=== PATIENT | male | born 2000 | race American Indian/Alaskan Native ===

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

== ENCOUNTER 2021-10-17 10:53 | Emergency (ER) | payer MEDICAID ==
--- NOTE | 2021-10-17 12:29 | Emergency Department Report ---
ED General Adult HPI - General Chief complaint: Upper Respiratory Infection Stated complaint: POSS FLU Time Seen by Provider: 10/17/21 11:34 Source: patient Mode of arrival: Ambulatory Limitations: No Limitations - History of Present Illness Initial comments: 21-year-old male patient presents with complaints of cough x5 days. He denies being vaccinated against COVID-19 or having testing performed. He states his girlfriend is sick with similar symptoms. Patient is also a chronic smoker. He denies any fever/chills/sweats, hemoptysis, shortness of breath, nausea/vomiting/diarrhea, or loss of taste or smell. Patient states NyQuil is not helping. - Related Data Previous Rx's Medication Instructions Recorded Last Taken Type Albuterol Sulfate [Proventil Hfa] 6.7 gm IH Q4H PRN #1 hfa.aer.ad 10/17/21 Unknown Rx Azithromycin [Zithromax Z-GRACIELA] 0 mg PO DAILY #6 tab 10/17/21 Unknown Rx Prednisone [predniSONE 10 mg 10 mg PO .TAPER #1 tab.ds.pk 10/17/21 Unknown Rx (6-Day Pack, 21 Tabs)] guaiFENesin [Guaifenesin ER] 1,200 mg PO BID PRN #14 tab.er.12h 10/17/21 Unknown Rx Allergies Allergy/AdvReac Type Severity Reaction Status Date / Time No Known Allergies Allergy Verified 09/03/19 01:31 ED Review of Systems ROS: Stated complaint: POSS FLU Other details as noted in HPI Constitutional: denies: chills, diaphoresis, fever, malaise Respiratory: cough. denies: shortness of breath, wheezing Cardiovascular: denies: chest pain Gastrointestinal: denies: abdominal pain Musculoskeletal: denies: back pain Neurological: denies: numbness ED Past Medical Hx - Social History Smoking Status: Current Every Day Smoker Substance Use Type: None - Medications Home Medications: Home Medications Medication Instructions Recorded Confirmed Last Taken Type Albuterol Sulfate [Proventil Hfa] 6.7 gm IH Q4H PRN #1 hfa.aer.ad 10/17/21 Unknown Rx Azithromycin [Zithromax Z-GRACIELA] 0 mg PO DAILY #6 tab 10/17/21 Unknown Rx Prednisone [predniSONE 10 mg 10 mg PO .TAPER #1 tab.ds.pk 10/17/21 Unknown Rx (6-Day Pack, 21 Tabs)] guaiFENesin [Guaifenesin ER] 1,200 mg PO BID PRN #14 tab.er.12h 10/17/21 Unknown Rx ED Physical Exam - General Limitations: No Limitations General appearance: alert, in no apparent distress - Head Head exam: Present: atraumatic, normocephalic - Eye Eye exam: Present: normal appearance. Absent: scleral icterus - Neck Neck exam: Present: normal inspection - Respiratory Respiratory exam: Present: wheezes (Diffuse), rhonchi (Diffuse). Absent: res piratory distress, rales, stridor - Cardiovascular Cardiovascular Exam: Present: regular rate, normal rhythm - Neurological Exam Neurological exam: Present: alert, oriented X3, normal gait - Psychiatric Psychiatric exam: Present: normal affect, normal mood - Skin Skin exam: Present: warm, dry, intact, normal color. Absent: rash ED Course Vital Signs 10/17/21 11:28 Temperature 98.4 F Pulse Rate 74 Respiratory 15 Rate Blood Pressure 116/72 O2 Sat by Pulse 95 Oximetry ED Medical Decision Making - Radiology Data Radiology results: report reviewed CHEST 2 VIEWS INDICATION / CLINICAL INFORMATION: cough, diffuse rhonci and weezing. COMPARISON: None available. FINDINGS: SUPPORT DEVICES: None. HEART / MEDIASTINUM: No significant abnormality. LUNGS / PLEURA: No significant pulmonary or pleural abnormality. No pneumothorax. ADDITIONAL FINDINGS: No significant additional findings. IMPRESSION: 1. No acute findings. - Medical Decision Making 21-year-old male patient presents with complaints of cough x5 days. He denies being vaccinated against COVID-19 or having testing performed. He states his girlfriend is sick with similar symptoms. Patient is also a chronic smoker. He denies any fever/chills/sweats, hemoptysis, shortness of breath, nausea/vomiting/diarrhea, or loss of taste or smell. Patient states NyQuil is not helping. On exam, patient has diffuse wheezing and rhonchi noted bilaterally. Chest x- ray is normal. Given duration of symptoms, history of smoking, and worsening of symptoms, will treat for acute bacterial bronchitis with a Z-Graciela. Recommend patient follows up with his primary care doctor in 3 to [address] gets outpatient COVID-19 testing within the next 24 to 48 hours and self quarantine's until his results are back. He is otherwise well-appearing, his vitals are within normal limits, he is stable for discharge home. Strict return precautions were discussed in detail with patient who verbalizes understanding. Critical care attestation.: If time is entered above; I have spent that time in minutes in the direct care of this critically ill patient, excluding procedure time. ED Disposition Clinical Impression: Acute bacterial bronchitis Disposition: HOME / SELF CARE / HOMELESS Is pt being admited?: No Condition: Stable Instructions: Acute Bronchitis (ED), Acute Bronchitis, Adult, [id number], Prevent the Spread of COVID-19 if You Are Sick - [facility] Prescriptions: guaiFENesin [Guaifenesin ER] 1,200 mg PO BID PRN #14 tab.er.12h PRN Reason: chest congestion Prednisone [predniSONE 10 mg (6-Day Pack, 21 Tabs)] 10 mg PO .TAPER #1 tab.ds.pk Albuterol Sulfate [Proventil Hfa] 6.7 gm IH Q4H PRN #1 hfa.aer.ad PRN Reason: Wheezing Azithromycin [Zithromax Z-GRACIELA] 0 mg PO DAILY #6 tab Forms: Work/School Release Form(ED)
--- NOTE | 2021-10-17 13:04 | XRay Report ---
CHEST 2 VIEWS INDICATION / CLINICAL INFORMATION: cough, diffuse rhonci and weezing. COMPARISON: None available. FINDINGS: SUPPORT DEVICES: None. HEART / MEDIASTINUM: No significant abnormality. LUNGS / PLEURA: No significant pulmonary or pleural abnormality. No pneumothorax. ADDITIONAL FINDINGS: No significant additional findings. IMPRESSION: 1. No acute findings. Signer Name: Ernesto Molina MD Signed: 10/17/2021 12:59 PM Workstation Name: [id number]
[2021-10-17 14:05] VITALS: BP 97/64
== END 2021-10-17 14:06 | disposition home or self-care (01) ==
LOC: ED 10:53
DX: J20.9 Acute bronchitis, unspecified (principal); B96.89 Other specified bacterial agents as the cause of diseases classified elsewhere; F17.200 Nicotine dependence, unspecified, uncomplicated; Z79.899 Other long term (current) drug therapy
CPT/HCPCS: 71046; 99282; 99283